=== PATIENT | male | born 1990 | race Two or more races ===

== ENCOUNTER 2017-03-20 02:49 | Inpatient (IN) | payer SELFPAY ==
[~2017-03-20] VITALS: Ht 175.3 cm; Wt 74.0 kg
[2017-03-20 05:15] VITALS: BP 120/77; PULSE 64; RESP 18; TEMP 98; O2SAT 98
[2017-03-20] MEDS ORDERED: ACETAMINOPHEN 325 MG TAB PO PRN (05:45)
[2017-03-20] MEDS ORDERED: ALUMINUM/MAGNESIUM/SIMETH 30 ML CUP PO PRN (05:45)
[2017-03-20] MEDS ORDERED: hydrOXYzine HCL 50 MG TAB PO PRN (05:45)
[2017-03-20] MEDS ORDERED: MAGNESIUM HYDROXIDE SUSP 30 ML CUP PO PRN (05:45)
[2017-03-20] MEDS: NICOTINE 21 MG/24 HR PATCH T-DERMAL SCH ×2 (08:31→14:06)
[2017-03-20] MEDS: REMOVE OLD NICOTINE PATCH T-DERMAL SCH (08:32)
[2017-03-20] MEDS ORDERED: FLUoxetine HCL 10 MG CAP PO ONE (12:45)
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
--- NOTE | 2017-03-20 17:05 | PD.CONS ---
HPI Service [facility] Hospitalists Consult Requested By Dr. Bhakta Reason for Consult Abdominal pain Primary Care Physician Unknown Diagnoses: History of Present Illness This is a 26-year-old male history of known substance abuse who presented with suicidal ideation so was Macdonald acted admitted to inpatient psychiatry. [facility] consulted due to question abdominal pain. When I interviewed patient he stated that he has right and left upper abdominal pain that had occurred for 7 months. He stated pain is constant. Denying nausea or vomiting. Deny any diarrhea or constipation. He stated the pain is dull and constant. He stated that working out makes the pain worse. Patient stated he does power lifting. He denies any fever. Deny any trauma to his chest or abdomen. Patient stated that he is concerned about his gallbladder so wants his gallbladder to be checked. All other review systems reviewed and negative. Past Family Social History Allergies: Coded Allergies: No Known Allergies (Unverified , 03/20/17) Past Medical History Polysubstance abuse ADHD History of incarceration History of suicidal ideations Past Surgical History Denies any past surgical history Reported Medications Deny any home medication. Active Ordered Medications Current Medications Hydroxyzine HCl (Atarax) 50 mg Q6H PRN PO ANXIETY; Start 03/20/17 at 05:45 Acetaminophen (Tylenol) 650 mg Q4H PRN PO Pain 1-5 or Temp >101F; Start at 05:45 Magnesium Hydroxide (Milk Of Magnesia Liq) 30 ml DAILY PRN PO CONSTIPATION; Start 03/20/17 at 05:45 Al Hydrox/Mg Hydrox/Simethicone (Mag-Al Plus Susp Liq) 30 ml Q6H PRN PO DYSPEPSIA; Start 03/20/17 at 05:45 Nicotine (Habitrol 21 Mg Patch.24 Hr) 1 patch DAILY T-DERMAL Last administered on 03/20/17at 14:06; Start 03/20/17 at 09:00 Miscellaneous Information 1 HS T-DERMAL ; Start 03/20/17 at 21:00 Olanzapine (ZyPREXA) 5 mg HS PO ; Start 03/20/17 at 21:00 Fluoxetine HCl (PROzac) 10 mg ONCE ONCE PO Last administered on 03/20/17at 14:05 ; Start 03/20/17 at 12:45; Stop 03/20/17 at 13:17; Status DC Fluoxetine HCl (PROzac) 20 mg DAILY PO ; Start 03/21/17 at 09:00 Gabapentin (Neurontin) 200 mg TID PO ; Start 03/20/17 at 18:00 Family History Mother has history of diabetes. Father had a history of bone marrow cancer. Social History Patient stated he drinks about 1 gallon of vodka a day. He denies any withdrawal symptoms. He stated that he stops drinking he gets a headache but does not get any other symptoms. Patient stated that he took every type of drug you can think of. He stated he never did IV drug use. Physical Exam Vital Signs Vital Signs Date Time Temp Pulse Resp B/P (MAP) Pulse Ox O2 Delivery O2 Flow Rate FiO2 03/20/17 05:15 98.0 64 18 120/77 (91) 98 Physical Exam GENERAL: This is a well-nourished, well-developed patient, in no apparent distress. SKIN: Multiple tattoos HEAD: Atraumatic. Normocephalic. No temporal or scalp tenderness. EYES: Pupils equal round and reactive. Extraocular motions intact. No scleral icterus. No injection or drainage. ENT: Nose without bleeding, purulent drainage or septal hematoma. Throat without erythema, tonsillar hypertrophy or exudate. Uvula midline. Airway patent. NECK: Trachea midline. No JVD or lymphadenopathy. Supple, nontender, no meningeal signs. Tenderness to palpation bilateral lower anterior lower ribs. CARDIOVASCULAR: Regular rate and rhythm without murmurs, gallops, or rubs. RESPIRATORY: Clear to auscultation. Breath sounds equal bilaterally. No wheezes , rales, or rhonchi. GASTROINTESTINAL: Abdomen soft, non-tender, nondistended. No hepato-splenomegaly , or palpable masses. No guarding. MUSCULOSKELETAL: Extremities without clubbing, cyanosis, or edema. No joint tenderness, effusion, or edema noted. No calf tenderness. Negative Homans sign bilaterally. NEUROLOGICAL: Awake and alert. Cranial nerves II through XII intact. Motor and sensory grossly within normal limits. Five out of 5 muscle strength in all muscle groups. Normal speech. Assessment and Plan Assessment and Plan 26-year-old male polysubstance abuse, history incarceration, ADHD who was Macdonald acted to suicidal ideation. [facility] consulted for questionable chronic abdominal pain Bilateral lower rib pain -This has been chronic and constant. Patient stated he does lifting. Most likely secondary to his workout regimen. Recommend backing off his workout regimen. Continue ibuprofen when necessary. -Patient concern that this might be his gallbladder even after reassuring patient that this is not his gallbladder. Patient asking for further workup. Will get ultrasound and labs. DVT prophylaxis -Encouraging ablation. Discussed case with patient's nurse. Leonarda Horan MD Mar 20, 2017 17:05
[2017-03-20] MEDS: GABAPENTIN 100 MG CAP PO SCH (18:08)
[2017-03-20 18:24] VITALS: BP 121/60; PULSE 76; RESP 17; TEMP 98.2; O2SAT 98
[2017-03-20] MEDS: OLANZapine 5 MG TAB PO SCH (21:28)
[2017-03-21 06:42] VITALS: BP 152/66; PULSE 74; RESP 16; TEMP 97.8; O2SAT 98
[2017-03-21] MEDS: NICOTINE 21 MG/24 HR PATCH T-DERMAL SCH (09:00)
[2017-03-21] MEDS: GABAPENTIN 100 MG CAP PO SCH ×3 (09:00→18:00)
[2017-03-21] MEDS ORDERED: FLUoxetine HCL 20 MG CAP PO SCH (09:00)
[2017-03-21 10:47] LABS: ALBUMIN 4.1 GM/DL (3.4-5.0); AST (GOT) 21 U/L (15-37); BICARBONATE 27.9 MEQ/L (21.0-32.0); BLOOD UREA NITROGEN 16 MG/DL (7-18); CALCIUM 9.1 MG/DL (8.5-10.1); CHLORIDE 103 MEQ/L (98-107); CREATININE 1.06 MG/DL (0.60-1.30); GLOMERULAR FILTRATION RATE 85 ML/MIN (>89); GLUCOSE,RANDOM 75 MG/DL (74-106); SODIUM (NA) 138 MEQ/L (136-145)
[2017-03-21 10:49] LABS: CHOLESTEROL 165 MG/DL (120-200); LIPASE 105 U/L (73-393)
[2017-03-21 10:54] LABS: ALKALINE PHOSPHATASE 81 U/L (45-117); ALT (GPT) 20 U/L (12-78); CHOLESTEROL/ HDL RATIO 2.55 RATIO; DIRECT BILIRUBIN ADULT 0.2 MG/DL (0.0-0.2); HDL CHOLESTEROL 64.5 MG/DL (40.0-60.0); INDIRECT BILIRUBIN 0.5 MG/DL (0.0-0.8); LDL CHOLESTEROL 79 MG/DL (0-99); TOTAL BILIRUBIN ADULT 0.7 MG/DL (0.2-1.0); TOTAL PROTEIN 7.5 GM/DL (6.4-8.2); TRIGLYCERIDES 109 MG/DL (42-150)
--- NOTE | 2017-03-21 15:57 | RADRPT ---
EXAM DATE/TIME: 03/21/2017 14:53 [facility] COMPARISON: No previous studies available for comparison. INDICATIONS : Right upper quadrant pain. MEDICAL HISTORY : Migraines. Bipolar disorder. ADHD. PTSD. Anxiety. SURGICAL HISTORY : None. ENCOUNTER: Initial ACUITY: 7-11 months PAIN SCORE: 0/10 LOCATION: Right upper quadrant MEASUREMENTS: LIVER: 16.4 cm length COMMON DUCT: 4 mm RIGHT KIDNEY: 10.7 x 3.7 x 4.7 cm FINDINGS: LIVER: Normal echotexture without focal lesion or ductal dilatation. COMMON DUCT: No intraluminal mass or stone visualized. GALLBLADDER: Contains no stones, demonstrates no wall thickening or pericholecystic fluid. PANCREAS: The visualized portions are within normal limits. RIGHT KIDNEY: No evidence of hydronephrosis, stone, or mass. CONCLUSION: Negative ultrasound of the upper abdomen. I do not see source for right upper quadra nt pain. Meet Huizar MD FACR on March 21, 2017 at 15:54 Board Certified Radiologist. This report was verified electronically.
--- NOTE | 2017-03-21 16:14 | HHI.PYPN ---
Subjective Remarks Patient seen for follow-up, chart reviewed. Discussion she staff reported the patient had refused by this morning stated that he had nausea and vomiting when taken the antidepressant morning. Patient currently on nothing by mouth as he had ultrasound scheduled for today. Patient slept well. Patient was found sitting in hospital bed, cooperative. Patient states that he did not want to continue taking medications as he had felt J upset as well as some nausea and vomiting yesterday after taking it. Side effects was reviewed with patient which she acknowledge but was willing to try different agent to help his depression as well as continue with Zyprexa 5 mg by mouth at bedtime. Patient waiting for ultrasound today states that his mood is "angry for no reason" denies feeling depressed or having suicidal ideations denies any perceptual disturbances at this time. Patient reports continuing to be looking for sober living facilities. Review of Systems Except as stated in HPI: all other systems reviewed are Neg Mental Status Examination Appearance: Appropriate, Other (multiple tattoos) Consciousness: Alert Orientation: Person, Place, Date/Time Motor Activity: Normal gait Speech: Unremarkable Language: Adequate Fund of Knowledge: Inadequate Attention and Concentration: Adequate Memory: Unremarkable Mood: Irritable Affect: Irritable Thought Process & Associations: Intact, Goal directed, Linear Thought Content: Appropriate Hallucination Type: None Delusion Type: None Suicidal Ideation: No Suicidal Plan: No Suicidal Intention: No Homicidal Ideation: No Homicidal Plan: No Homicidal Intention: No Insight: Fair Judgment: Impulsive Results Labs Labs reviewed Test 03/21/17 08:57 Blood Urea Nitrogen 16 MG/DL Creatinine 1.06 MG/DL Random Glucose 75 MG/DL Total Protein 7.5 GM/DL Albumin 4.1 GM/DL Calcium Level 9.1 MG/DL Alkaline Phosphatase 81 U/L Aspartate Amino Transf (AST/SGOT) 21 U/L Alanine Aminotransferase (ALT/SGPT) 20 U/L Total Bilirubin 0.7 MG/DL Direct Bilirubin 0.2 MG/DL Sodium Level 138 MEQ/L Potassium Level 4.0 MEQ/L Chloride Level 103 MEQ/L Carbon Dioxide Level 27.9 MEQ/L Anion Gap 7 MEQ/L Estimat Glomerular Filtration Rate 85 ML/MIN Indirect Bilirubin 0.5 MG/DL Triglycerides Level 109 MG/DL Cholesterol Level 165 MG/DL LDL Cholesterol 79 MG/DL HDL Cholesterol 64.5 MG/DL Cholesterol/HDL Ratio 2.55 RATIO Lipase 105 U/L Vitals/IOs Vital Signs Date Time Temp Pulse Resp B/P (MAP) Pulse Ox O2 Delivery O2 Flow Rate FiO2 03/21/17 06:42 97.8 74 16 152/66 (94) 98 Intake and Output 03/21/17 03/21/17 03/22/17 08:00 16:00 00:00 Intake Total 240 ml Balance 240 ml Assessment & Plan Problem List: (1) Adjustment disorder with depressed mood ICD Codes: F43.21 - Adjustment disorder with depressed mood (2) Polysubstance abuse ICD Codes: F19.10 - Other psychoactive substance abuse, uncomplicated Assessment & Plan The patient at this time reports having had tolerance to side effects from antidepressant continues report irritable mood but denies any suicide ideation nor any perceptual disturbances. We'll discontinue fluoxetine, start mirtazapine 50 mg by mouth at bedtime for depression, continue olanzapine 5 mg by mouth at bedtime. Supportive psychotherapy provided. Patient will have ultrasound done today, medical team to continue follow-up. Discharge planning in progress Justification for Cont. Inpt. At risk for further decompensation at lower level of care Discharge Planning To be discharged to sober living facility once psychiatrically stable. James Bhakta MD Mar 21, 2017 16:14
[2017-03-21 17:13] LABS: HEMOGLOBIN A1C 4.5 % (4.3-6.0)
[2017-03-21 18:37] VITALS: BP 128/59; PULSE 76; RESP 16; TEMP 97.4; O2SAT 100
[2017-03-21] MEDS: REMOVE OLD NICOTINE PATCH T-DERMAL SCH (21:00)
[2017-03-21] MEDS: OLANZapine 5 MG TAB PO SCH (21:31)
[2017-03-21] MEDS: MIRTAZAPINE 15 MG TAB PO SCH (21:31)
[2017-03-22 05:49] VITALS: BP 100/64; PULSE 65; RESP 16; TEMP 97.6; O2SAT 97
[2017-03-22] MEDS: GABAPENTIN 100 MG CAP PO SCH ×3 (09:22→18:26)
[2017-03-22] MEDS: NICOTINE 21 MG/24 HR PATCH T-DERMAL SCH ×2 (09:22→15:51)
--- NOTE | 2017-03-22 13:15 | HHI.PYPN ---
Subjective Remarks Patient was seen and case discussed with nursing. Patient is guarded and hypoverbal. Does not describe any new stressors. Describes his mood today is "angry." No behavioral outbursts. Eating and sleeping well. Denies suicidal homicidal ideation intent or plan Mental Status Examination Appearance: Appropriate, Other (multiple tattoos) Consciousness: Alert Orientation: Person, Place, Date/Time Motor Activity: Normal gait Speech: Unremarkable Language: Adequate Fund of Knowledge: Inadequate Attention and Concentration: Adequate Memory: Unremarkable Mood: Angry Affect: Irritable Thought Process & Associations: Intact, Goal directed, Linear Thought Content: Appropriate Hallucination Type: None Delusion Type: None Suicidal Ideation: No Suicidal Plan: No Suicidal Intention: No Homicidal Ideation: No Homicidal Plan: No Homicidal Intention: No Insight: Fair Judgment: Impulsive Results Vitals/IOs Vital Signs Date Time Temp Pulse Resp B/P (MAP) Pulse Ox O2 Delivery O2 Flow Rate FiO2 03/22/17 05:49 97.6 65 16 100/64 (57) 97 Assessment & Plan Problem List: (1) Adjustment disorder with depressed mood ICD Codes: F43.21 - Adjustment disorder with depressed mood (2) Polysubstance abuse ICD Codes: F19.10 - Other psychoactive substance abuse, uncomplicated Assessment & Plan Continue current treatment plan Justification for Cont. Inpt. Patient would decompensate in a less restrictive setting Jamison Parson DO Mar 22, 2017 13:15
[2017-03-22 16:27] VITALS: BP 129/60; PULSE 78; RESP 17; TEMP 98.2; O2SAT 98
[2017-03-22] MEDS: REMOVE OLD NICOTINE PATCH T-DERMAL SCH (21:00)
[2017-03-22] MEDS: MIRTAZAPINE 15 MG TAB PO SCH (21:44)
[2017-03-22] MEDS: OLANZapine 5 MG TAB PO SCH (21:44)
[2017-03-23] MEDS: NICOTINE 21 MG/24 HR PATCH T-DERMAL SCH (09:00)
[2017-03-23] MEDS: GABAPENTIN 100 MG CAP PO SCH ×3 (09:00→18:43)
--- NOTE | 2017-03-23 12:40 | HHI.PYPN ---
Subjective Remarks Patient was seen and case discussed with nursing. Per nursing patient has been irritable and minimally engaged. He says he feels angry inside but for my interview is quite pleasant. He wants to move on with his life and be discharged. He denies depressed mood. Denies suicidal or homicidal ideation intent or plan. Compliant with medications Mental Status Examination Appearance: Appropriate, Other (multiple tattoos) Consciousness: Alert Orientation: Person, Place, Date/Time Motor Activity: Normal gait Speech: Unremarkable Language: Adequate Fund of Knowledge: Inadequate Attention and Concentration: Adequate Memory: Unremarkable Mood: Angry Affect: Irritable Thought Process & Associations: Intact, Goal directed, Linear Thought Content: Appropriate Hallucination Type: None Delusion Type: None Suicidal Ideation: No Suicidal Plan: No Suicidal Intention: No Homicidal Ideation: No Homicidal Plan: No Homicidal Intention: No Insight: Fair Judgment: Impulsive Results Vitals/IOs Vital Signs Date Time Temp Pulse Resp B/P (MAP) Pulse Ox O2 Delivery O2 Flow Rate FiO2 03/22/17 16:27 98.2 78 17 129/60 (83) 98 Assessment & Plan Problem List: (1) Adjustment disorder with depressed mood ICD Codes: F43.21 - Adjustment disorder with depressed mood (2) Polysubstance abuse ICD Codes: F19.10 - Other psychoactive substance abuse, uncomplicated Assessment & Plan Continue current treatment plan Justification for Cont. Inpt. Patient will decompensate in a less restrictive setting Jamison Parson DO Mar 23, 2017 12:40
[2017-03-23] MEDS ORDERED: IBUPROFEN 400 MG TAB PO PRN (15:00)
--- NOTE | 2017-03-23 15:13 | HHI.PR ---
Subjective Remarks f/u for B/L rib pain patient improved but pain is constant. denied any N/V. remains afebrile. Objective Vitals Vital Signs Date Time Temp Pulse Resp B/P (MAP) Pulse Ox O2 Delivery O2 Flow Rate FiO2 03/22/17 16:27 98.2 78 17 129/60 (83 98 Result Diagram: 03/21/17 0857 Objective Remarks GENERAL: in NAD CARDIOVASCULAR: Regular rate and rhythm without murmurs, gallops, or rubs. RESPIRATORY: Breath sounds equal bilaterally. No accessory muscle use. GASTROINTESTINAL: Abdomen soft, non-tender, nondistended. MUSCULOSKELETAL: + lower rib pain with palpation mild. BACK: Nontender without obvious deformity. No CVA tenderness. Medications and IVs Current Medications Hydroxyzine HCl (Atarax) 50 mg Q6H PRN PO ANXIETY; Start 03/20/17 at 05:45 Acetaminophen (Tylenol) 650 mg Q4H PRN PO Pain 1-5 or Temp >101F Last administered on 03/20/17at 21:30; Start 03/20/17 at 05:45 Magnesium Hydroxide (Milk Of Magnesia Liq) 30 ml DAILY PRN PO CONSTIPATION; Start 03/20/17 at 05:45 Al Hydrox/Mg Hydrox/Simethicone (Mag-Al Plus Susp Liq) 30 ml Q6H PRN PO DYSPEPSIA Last administered on 03/20/17at 20:06; Start 03/20/17 at 05:45 Nicotine (Habitrol 21 Mg Patch.24 Hr) 1 patch DAILY T-DERMAL Last administered on 03/22/17at 15:51; Start 03/20/17 at 09:00 Miscellaneous Information 1 HS T-DERMAL Last administered on 03/22/17at 21:00; Start 03/20/17 at 21:00 Olanzapine (ZyPREXA) 5 mg HS PO Last administered on 03/22/17at 21:44; Start 03/20 at 21:00 Fluoxetine HCl (PROzac) 10 mg ONCE ONCE PO Last administered on 03/20/17at 14:05 ; Start 03/20/17 at 12:45; Stop 03/20/17 at 13:17; Status DC Fluoxetine HCl (PROzac) 20 mg DAILY PO ; Start 03/21/17 at 09:00; Stop 03/21/17 at 15:15; Status DC Gabapentin (Neurontin) 200 mg TID PO Last administered on 03/23/17at 13:00; Start 03/20/17 at 18:00 Mirtazapine (Remeron) 15 mg HS PO Last administered on 03/22/17at 21:44; Start at 21:00 A/P Assessment and Plan 26-year-old male polysubstance abuse, history incarceration, ADHD who was Macdonald acted to suicidal ideation. [facility] consulted for questionable chronic abdominal pain Bilateral lower rib pain -This has been chronic and constant. Patient stated he does lifting. Most likely secondary to his workout regimen. Recommend backing off his workout regimen. Continue ibuprofen when necessary. -us gallbladder normal. labs reviewed WNL. DVT prophylaxis -Encouraging ablation. Discharge Planning patient medically stable. will sign off f/u PRN. Leonarda Horan MD Mar 23, 2017 15:13
[2017-03-23 16:11] VITALS: BP 130/60; PULSE 72; RESP 18; TEMP 98.2; O2SAT 100
[2017-03-23] MEDS: REMOVE OLD NICOTINE PATCH T-DERMAL SCH (21:00)
[2017-03-23] MEDS: OLANZapine 5 MG TAB PO SCH (21:39)
[2017-03-23] MEDS: MIRTAZAPINE 15 MG TAB PO SCH (21:39)
[2017-03-24 06:14] VITALS: BP 107/58; PULSE 65; RESP 18; TEMP 98; O2SAT 100
[2017-03-24] MEDS: GABAPENTIN 100 MG CAP PO SCH ×2 (09:00→12:17)
[2017-03-24] MEDS: NICOTINE 21 MG/24 HR PATCH T-DERMAL SCH (09:00)
[2017-03-24] MEDS ORDERED: GABA300C5 PO (13:43)
[2017-03-24] MEDS ORDERED: MIRTA15 PO (13:43)
[2017-03-24] MEDS ORDERED: OLAN5TAB PO (13:43)
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
--- NOTE | 2017-03-24 15:10 | PD.TTN ---
Patient Problems 1. Discharge planning 2. Medication compliance 3. Knowledge deficit 4. Lack of coping skills Progress Toward Goals Provider Present: Dr. Roshan Bhakta Provider Input: Patient present on the unit and will be leaving today with appropriate discharge follow up. Psychiatric Counselors Present: [facility] Psych Therapist Input: Patient will be discharge and will be residing with his grandparents upon discharge. Patient has good follow up care and is stating that he wants to connect with his faith. Group Spec/RT/OT/RESTREPO Present: Ramy Wadsworth OT Group Spec/RT/OT/RESTREPO Input: Patient is selective in groups. Alma Rosa Villegas Mar 24, 2017 15:10
== END 2017-03-24 15:15 | disposition home or self-care (01) | DRG 881 ==
LOC: H260 05:26
PROVIDERS: ADMIT Student in an Organized Health Care Education/Training Program; ATTEND Student in an Organized Health Care Education/Training Program
DX: F43.21 Adjustment disorder with depressed mood (principal); F20.9 Schizophrenia, unspecified; R45.851 Suicidal ideations; F31.9 Bipolar disorder, unspecified; F60.2 Antisocial personality disorder; F90.9 Attention-deficit hyperactivity disorder, unspecified type; F42.9 Obsessive-compulsive disorder, unspecified; F40.10 Social phobia, unspecified; F12.90 Cannabis use, unspecified, uncomplicated; F10.10 Alcohol abuse, uncomplicated; R07.81 Pleurodynia; F17.210 Nicotine dependence, cigarettes, uncomplicated; Z59.0 Homelessness; Z63.8 Other specified problems related to primary support group; Z81.8 Family history of other mental and behavioral disorders; Z91.410 Personal history of adult physical and sexual abuse; Z91.5 Personal history of self-harm
CPT/HCPCS: 76705; 80048; 80061; 80076; 83036; 83690

== ENCOUNTER 2017-08-13 00:22 | Inpatient (IN) | payer SELFPAY ==
[~2017-08-13 00:22] MED LIST: GABA300C5 PO; MIRTA15 PO; OLAN5TAB PO
[2017-08-13 05:32] VITALS: BP 108/55; PULSE 70; RESP 16; O2SAT 100
[2017-08-13 10:30] VITALS: BP 117/63; PULSE 86; RESP 18; TEMP 97.9; O2SAT 99
--- NOTE | 2017-08-13 10:42 | PD.PSY.CON ---
Provisional Diagnosis Admission Date Date of consultation 08/13/2017 Donora I. 1. Adjustment disorder with mixed disturbance of emotions and conduct 2. Cannabis abuse Donora II. Deferred History of Present Illness Service Psychiatry Consult Requested By Emergency department Reason for Consult Renae pritchett Primary Care Physician No Primary Care Physician HPI Mr. Sorto is a 27-year-old male with a chart history of adjustment disorder and polysubstance abuse who presented initially to [facility] ED reporting aborted suicide attempt by overdose. He was Macdonald acted by the ED provider and sent to the [facility] for further evaluation. Reviewing the electronic medical record, I note that the patient was psychiatrically admitted under Dr. Bhakta in March of this year. Patient seen and examined. Chart reviewed. Case discussed with nursing staff. On my examination today, the patient endorses ongoing suicidal ideation with no specific plan at this point. Complaints of depression, social withdrawal and poor appetite. He complains of paranoia and says that he recently lost his job because "I freaked out. I thought employees on the site were trying to murder me." He reports vague audiovisual hallucinations. No hypomanic or manic symptoms. The remainder of the psychiatric ROS is negative. No acute physical complaints. Past psychiatric history: Patient reports that he saw a psychiatrist last week although he cannot remember the name. He reports that he has had multiple psychiatric admissions since he was here in March most recently in [place] a month ago. He tells me "I keep signing myself out." He reports previous suicide attempts by several different methods, most recently by hanging. Family history: The patient reports that his father has bipolar disorder, his mother has anxiety disorder and his sister and cousin have depression. Chemical dependency history: The patient reports use of cannabis. He reports that historically he has used "tons and tons" of K2. No other substance use reported. Social history: The patient lives alone. He has a girlfriend. He has a 4-year- old son with whom he has no contact. He has his GED and recently lost his job. He served in the [employer] but had a dishonorable discharge. Denies any access to guns or firearms. Denies any active legal issues. Review of Systems Except as stated in HPI: all other systems reviewed are Neg Past Family Social History Coded Allergies: No Known Allergies (Unverified , 03/20/17) Past Medical History See electronic medical record Active Scripts Olanzapine (Olanzapine) 5 Mg Tab, 5 MG PO HS for health for 30 Days, #30 TAB Prov:James Bhakta MD 03/24/17 Mirtazapine (Mirtazapine) 15 Mg Tab, 15 MG PO HS for health for 30 Days, #30 TAB Prov:James Bhakta MD 03/24/17 Gabapentin (Gabapentin) 300 Mg Cap, 300 MG PO TID for health, #90 CAP 0 Refills Prov:James Bhakta MD 03/24/17 Patient's Strengths (min. 2) In a monitored setting. Verbally fluent. Physical Exam Physical exam completed by ED provider. On my examination today, the patient appears to be in no acute physical distress. No motor abnormalities noted. No signs of intoxication or withdrawal noted. Labs and vitals reviewed: Vital Signs Vital Signs Date Time Temp Pulse Resp B/P (MAP) Pulse Ox O2 Delivery O2 Flow Rate FiO2 08/13/17 10:30 97.9 86 18 117/63 (81) 99 Room Air Lab Results Item Value Date Time White Blood Count 7.8 TH/MM3 08/12/172114 Hemoglobin 15.4 GM/DL 08/12/172114 Platelet Count 262 TH/MM3 08/12/172114 Sodium Level 143 MEQ/L 08/12/172114 Potassium Level 4.2 MEQ/L 08/12/172114 Carbon Dioxide Level 30.0 MEQ/L 08/12/172114 Chloride Level 106 MEQ/L 08/12/172114 Blood Urea Nitrogen 14 MG/DL 08/12/172114 Creatinine 1.50 MG/DL H 08/12/172114 Aspartate Amino Transf (AST/SGOT) 12 U/L L 08/12/172114 Alanine Aminotransferase (ALT/SGPT) 19 U/L 08/12/172114 Alkaline Phosphatase 86 U/L 08/12/172114 Urine Cannabinoids Screen POS H 08/12/170 Ethyl Alcohol Level LESS THAN 3 MG/DL 08/12/172114 Mental Status Examination Appearance: Appropriate, Other (Numerous teardrop tattoos at eyelid) Consciousness: Alert Orientation: x4 Motor Activity: Other (No motor abnormalities) Speech: Unremarkable Language: Adequate Fund of Knowledge: Adequate Attention and Concentration: Adequate Memory: Unremarkable (Grossly intact on clinical exam) Mood: Other (Dysphoric) Affect: Other (Restricted) Thought Process & Associations: Intact, Logical, Linear Thought Content: Hallucinations, Delusional Hallucination Type: Auditory, Visual, Other (Reports vague hallucinations. Does not appear internally stimulated.) Delusion Type: Paranoid (Reports subjective paranoia) Suicidal Ideation: Yes Suicidal Plan: No Suicidal Intention: No Homicidal Ideation: No Homicidal Plan: No Homicidal Intention: No Insight: Fair Judgment: Impulsive Assessment & Plan Problem List: (1) Adjustment disorder with mixed disturbance of emotions and conduct ICD Codes: F43.25 - Adjustment disorder with mixed disturbance of emotions and conduct (2) Cannabis abuse ICD Codes: F12.10 - Cannabis abuse, uncomplicated Assessment & Plan 27-year-old male with psychiatric history as detailed above who is presently in the ED under a Macdonald act following reported aborted suicide attempt. Patient endorses ongoing suicidal ideation along with depressive symptoms and subjective paranoia and hallucinations. Possibly some degree of symptom exaggeration, although it is unclear what the secondary gain would be. [facility] be [facility] the [facility] wait list for inpatient psychiatric services there. Macdonald act remains in place. Patient to remain in [facility] pending transferred to [facility]. Case discussed with RN. Thank you very much for this consultation. Tony Elkins MD August 13, 2017 10:42
[2017-08-13 18:02] VITALS: BP 131/78; PULSE 61; RESP 16; TEMP 97.8; O2SAT 99
[2017-08-13 22:32] VITALS: BP 116/62; PULSE 84; RESP 16; TEMP 98.6; O2SAT 98
[2017-08-14 02:50] VITALS: BP 114/62; PULSE 70; RESP 16; TEMP 97.2; O2SAT 99
[2017-08-14 06:27] VITALS: BP 128/70; PULSE 80; RESP 16; TEMP 98.2; O2SAT 98
--- NOTE | 2017-08-14 07:46 | HHI.HP ---
Provisional Diagnosis Admission Date 08/14/2017 [place]. 1. Adjustment disorder with mixed disturbance of emotions and conduct 2. Cannabis abuse [place] II. Deferred Certification of Person's Competence To Provide Express and Informed Consent I have personally examined Jb Sorto , a person being served at [facility] on, August 14, 2017 07:46. Express and informed consent means consent voluntarily given in writing, by a competent person, after sufficient explanation and disclosure of the subject matter involved to enable the person to make a knowing and willful decision without any element of force, fraud, deceit, duress, or other form of constraint or coercion. This person is 18 years of age or older, is not now known to be incompetent to consent to treatment with a guardian advocate, and does not have a health care surrogate or proxy currently making medical treatment decisions. I have found this person to be one of the following: [x] Competent to provide express and informed consent, as defined above, for voluntary admission to this facility and is competent to provide express and informed consent for treatment. He/she has the consistent capacity to make well reasoned, willful, and knowing decisions concerning his or her medical or mental health treatment. The person fully and consistently understands the purpose of the admission for examination/placement and is fully capable of personally exercising all rights assured [place] Incompetent to provide express and informed consent to voluntary admission, and this is incompetent to provide express and informed consent to treatment. The person must be transferred to involuntary status and a petition for a guardian advocate filed with the Circuit Court. [] Refusing to provide express and informed consent to voluntary admission but is competent to provide express and informed consent for treatment. The person must be discharged or transferred to involuntary status. Form shall be completed within 24 hours of a person's arrival at the receiving facility and filed in the clinical record of each person: 1. Admitted on a voluntary basis 2. Permitted to provide express and informed consent to his/her own treatment 3. Allowed to transfer from involuntary to voluntary status 4. Prior to permitting a person to consent to his or her own treatment after having been previously found incompetent to consent to treatment. History of Present Illness Capacity: Has Capacity Psych Chief Complaint: Depression, paranoia HPI From my consult note of yesterday: Mr. Sorto is a 27-year-old male with a chart history of adjustment disorder and polysubstance abuse who presented initially to [facility] reporting aborted suicide attempt by overdose. He was Macdonald acted by the ED provider and sent to the main campus for further evaluation. Reviewing the electronic medical record, I note that the patient was psychiatrically admitted under Dr. Bhakta in March of this year. Patient seen and examined. Chart reviewed. Case discussed with nursing staff. On my examination today, the patient endorses ongoing suicidal ideation with no specific plan at this point. Complaints of depression, social withdrawal and poor appetite. He complains of paranoia and says that he recently lost his job because "I freaked out. I thought employees on the site were trying to murder me." He reports vague audiovisual hallucinations. No hypomanic or manic symptoms. The remainder of the psychiatric ROS is negative. No acute physical complaints. Past psychiatric history: Patient reports that he saw a psychiatrist last week although he cannot remember the name. He reports that he has had multiple psychiatric admissions since he was here in March most recently in [place] a month ago. He tells me "I keep signing myself out." He reports previous suicide attempts by several different methods, most recently by hanging. Family history: The patient reports that his father has bipolar disorder, his mother has anxiety disorder and his sister and cousin have depression. Chemical dependency history: The patient reports use of cannabis. He reports that historically he has used "tons and tons" of K2. No other substance use reported. Social history: The patient lives alone. He has a girlfriend. He has a 4-year- old son with whom he has no contact. He has his GED and recently lost his job. He served in the [employer] but had a dishonorable discharge. Denies any access to guns or firearms. Denies any active legal issues. On my re-examination today, 08/14: Patient seen and examined. Chart reviewed. Case discussed with nursing staff. No reported behavioral issues noted overnight. Patient has not moved up on the ACT wait list and in fact has moved down a spot. On my examination today, the patient endorses ongoing dysphoria, paranoia and suicidal ideation. He denies any specific plan. Denies any urge to hurt himself on the inpatient unit. Says that he is ruminating on negative thoughts. Denies AVH. We discuss possible medication management options. The patient reports that he has done well with Risperdal in the past but stopped it because he was worried about the possible side effect of gynecomastia. He did not in fact experience this side effect. Extensive psychoeducation provided regarding hyperprolactinemia and gynecomastia. Patient notes that Risperdal is the only thing that has really shown any glimmer of helping, although the Remeron does help him with sleep. He would like to be psychiatrically admitted for management of his ongoing psychiatric symptoms. Review of Systems Except as stated in HPI: all other systems reviewed are Neg Past Family Social History Coded Allergies: No Known Allergies (Unverified , 03/20/17) Past Medical History See EMR Active Scripts Olanzapine (Olanzapine) 5 Mg Tab, 5 MG PO HS for health for 30 Days, #30 TAB Prov:James Bhakta MD 03/24/17 Mirtazapine (Mirtazapine) 15 Mg Tab, 15 MG PO HS for health for 30 Days, #30 TAB Prov:James Bhakta MD 03/24/17 Gabapentin (Gabapentin) 300 Mg Cap, 300 MG PO TID for health, #90 CAP 0 Refills Prov:James Bhakta MD 03/24/17 Patient's Strengths (min. 2) In a monitored setting. Verbally fluent. Physical Exam Physical examination was completed by the ED provider. On my reexamination today, the patient remains in no physical distress. No motor abnormalities noted. Labs and vitals again reviewed. Vital Signs Vital Signs Date Time Temp Pulse Resp B/P (MAP) Pulse Ox O2 Delivery O2 Flow Rate FiO2 08/14/17 06:27 98.2 80 16 128/70 (89) 98 08/13/17 18:02 Room Air Lab Results Besides decreased GFR and toxicology positive for cannabinoids, no clinically significant laboratory abnormalities. Mental Status Examination Appearance: Appropriate, Other (Numerous teardrop tattoos at eyelid) Consciousness: Alert Orientation: x4 Motor Activity: Other (No abnormal motor movements noted.) Speech: Unremarkable Language: Adequate Fund of Knowledge: Adequate Attention and Concentration: Adequate Memory: Unremarkable (Grossly intact on clinical exam) Mood: Other (Remains dysphoric) Affect: Other (Restricted) Thought Process & Associations: Intact, Logical, Linear Thought Content: Delusional Hallucination Type: None (Denies AVH today) Delusion Type: Paranoid (Reports subjective paranoia) Suicidal Ideation: Yes Suicidal Plan: No Suicidal Intention: No (No reported urge to hurt self on inpatient unit) Homicidal Ideation: No Homicidal Plan: No Homicidal Intention: No Insight: Fair Judgment: Impulsive Assessment & Plan Problem List: (1) Adjustment disorder with mixed disturbance of emotions and conduct ICD Codes: F43.25 - Adjustment disorder with mixed disturbance of emotions and conduct (2) Cannabis abuse ICD Codes: F12.10 - Cannabis abuse, uncomplicated Assessment & Plan 27-year-old male presently held in the [place] under a [employer] act. Given lack of movement on ACT wait list, we will admit the patient here. Admit inpatient. Voluntary status. Initiate Risperdal 1 mg twice daily along with Remeron 15 mg at bedtime for management of psychiatric symptoms. Atarax as needed for anxiety, Cogentin as needed for EPS, Benadryl as needed for sleep. Check a baseline prolactin as well as hemoglobin A1c, lipid panel and BMP. Vitals every shift. Counselor to see. Disposition planning. Estimated length of stay: 5-7 days. Discharge Planning Pending psychiatric stabilization Request HC Surrog/Guard Advoc?: No Tony Elkins MD August 14, 2017 07:46
[2017-08-14] MEDS ORDERED: diphenhydrAMINE HCL 50 MG CAP PO PRN (08:00)
[2017-08-14] MEDS ORDERED: hydrOXYzine HCL 50 MG TAB PO PRN (08:00)
[2017-08-14] MEDS ORDERED: NICOTINE 21 MG/24 HR PATCH T-DERMAL PRN (08:00)
[2017-08-14] MEDS ORDERED: ACETAMINOPHEN 325 MG TAB PO PRN (08:00)
[2017-08-14] MEDS ORDERED: ALUMINUM/MAGNESIUM/SIMETH 30 ML CUP PO PRN (08:00)
[2017-08-14] MEDS ORDERED: BENZTROPINE MESYLATE 1 MG TAB PO PRN (08:00)
[2017-08-14] MEDS ORDERED: BENZTROPINE MESYLATE 2 MG/2 ML VIAL IM PRN (08:00)
[2017-08-14] MEDS ORDERED: MAGNESIUM HYDROXIDE SUSP 30 ML CUP PO PRN (08:00)
[2017-08-14 10:53] VITALS: BP 137/70; PULSE 70; RESP 18; TEMP 98.1; O2SAT 100
[2017-08-14] MEDS: risperiDONE 1 MG TAB PO SCH ×2 (11:33→21:03)
[2017-08-14] MEDS: GABAPENTIN 300 MG CAP PO SCH ×3 (11:33→17:31)
[2017-08-14 14:32] LABS: BICARBONATE 28.2 MEQ/L (21.0-32.0); CALCIUM 9.3 MG/DL (8.5-10.1); CREATININE 1.24 MG/DL (0.60-1.30)
[2017-08-14 17:52] VITALS: BP 138/68; PULSE 96; RESP 17; TEMP 97.1; O2SAT 97
[2017-08-14] MEDS ORDERED: MIRTAZAPINE 15 MG TAB PO SCH (21:00)
[2017-08-14] MEDS ORDERED: REMOVE OLD NICODERM (NICOTINE) PATCH T-DERMAL PRN (21:00)
[2017-08-15 05:28] VITALS: BP 118/78; PULSE 69; RESP 18; TEMP 97.7; O2SAT 97
[2017-08-15] MEDS: GABAPENTIN 300 MG CAP PO SCH ×3 (08:35→17:44)
[2017-08-15] MEDS: risperiDONE 1 MG TAB PO SCH (08:35)
[2017-08-15 09:02] LABS: CHOLESTEROL 136 MG/DL (120-200); TRIGLYCERIDES 193 MG/DL (42-150)
[2017-08-15 09:04] LABS: CHOLESTEROL/ HDL RATIO 3.37 RATIO; HDL CHOLESTEROL 40.3 MG/DL (40.0-60.0); LDL CHOLESTEROL 57 MG/DL (0-99)
[2017-08-15] MEDS ORDERED: MIRTA15 PO (14:58)
[2017-08-15] MEDS ORDERED: GABA300C5 PO (14:58)
[2017-08-15] MEDS ORDERED: RISP1 PO (14:58)
--- NOTE | 2017-08-15 14:58 | EKG ---
Date Performed: 08/15/2017 Time Performed: 10:04:38 PTAGE: 27 years EKG: Sinus rhythm NORMAL ECG NO PREVIOUS TRACING DOCTOR: Frank Voss Interpretating Date/Time 08/15/2017 14:53:56
--- NOTE | 2017-08-15 14:59 | HHI.DS ---
Psychiatry Discharge Summary Inpatient Psychiatric care?: Yes Advance Directive: No Reason Not Provided: Provided info to patient Mental Health AdvanceDirective: No Health Care Proxy: No Admission Admission Date August 14, 2017 at 07:46 Admission Diagnosis: (1) Adjustment disorder with mixed disturbance of emotions and conduct ICD Code: F43.25 - Adjustment disorder with mixed disturbance of emotions and conduct (2) Cannabis abuse ICD Code: F12.10 - Cannabis abuse, uncomplicated Brief History From my consult note of yesterday: Mr. Sorto is a 27-year-old male with a chart history of adjustment disorder and polysubstance abuse who presented initially to [facility] ED reporting aborted suicide attempt by overdose. He was Macdonald acted by the ED provider and sent to the main campus for further evaluation. Reviewing the electronic medical record, I note that the patient was psychiatrically admitted under Dr. Bhakta in March of this year. Patient seen and examined. Chart reviewed. Case discussed with nursing staff. On my examination today, the patient endorses ongoing suicidal ideation with no specific plan at this point. Complaints of depression, social withdrawal and poor appetite. He complains of paranoia and says that he recently lost his job because "I freaked out. I thought employees on the site were trying to murder me." He reports vague audiovisual hallucinations. No hypomanic or manic symptoms. The remainder of the psychiatric ROS is negative. No acute physical complaints. Past psychiatric history: Patient reports that he saw a psychiatrist last week although he cannot remember the name. He reports that he has had multiple psychiatric admissions since he was here in March most recently in [place] a month ago. He tells me "I keep signing myself out." He reports previous suicide attempts by several different methods, most recently by hanging. Family history: The patient reports that his father has bipolar disorder, his mother has anxiety disorder and his sister and cousin have depression. Chemical dependency history: The patient reports use of cannabis. He reports that historically he has used "tons and tons" of K2. No other substance use reported. Social history: The patient lives alone. He has a girlfriend. He has a 4-year- old son with whom he has no contact. He has his GED and recently lost his job. He served in the [employer] but had a dishonorable discharge. Denies any access to guns or firearms. Denies any active legal issues. On my re-examination today, 08/14: Patient seen and examined. Chart reviewed. Case discussed with nursing staff. No reported behavioral issues noted overnight. Patient has not moved up on the ACT wait list and in fact has moved down a spot. On my examination today, the patient endorses ongoing dysphoria, paranoia and suicidal ideation. He denies any specific plan. Denies any urge to hurt himself on the inpatient unit. Says that he is ruminating on negative thoughts. Denies AVH. We discuss possible medication management options. The patient reports that he has done well with Risperdal in the past but stopped it because he was worried about the possible side effect of gynecomastia. He did not in fact experience this side effect. Extensive psychoeducation provided regarding hyperprolactinemia and gynecomastia. Patient notes that Risperdal is the only thing that has really shown any glimmer of helping, although the Remeron does help him with sleep. He would like to be psychiatrically admitted for management of his ongoing psychiatric symptoms. Tobacco Use In Past 30 Days: No Tobacco Past 30 Days Alcohol Use: 4 or More Times Per Week Hospital Course Mr. Sorto is a 27-year-old male with a chart history of adjustment disorder and polysubstance abuse who presented initially to [facility] ED reporting aborted suicide attempt by overdose. He was Macdonald acted by the ED provider and sent to the [facility] for further evaluation who was admitted to the inpatient psychiatry for further evaluation and management. Patient started on Risperidone 1mg BID, mirtazapine 15mg PO daily which patient tolerated well with no notable adverse drug reactions. Patient was noted with reported depressive symptoms along with continued SI but with reinitiation of treatment no longer endorsed SI and improvement of depressive symptoms. She did not endorse any manic or psychotic symptoms, and no longer endorsed SI after kept on treatment. Patient was noted to have improvement in mood, and continued to deny SI. Patient was noted with stable mood, was noted to participate in self care, engaging with staff, participated in groups and maintaining adequate hygiene. Treatment team was able to set up outpatient follow up appointments which the patient can continue with current medication regimen. Collateral information from patients family confirmed to assist in support with treatment as well as engagement [facility] a [facility]. Upon discharge patient stated that she was feeling good, reported well with the treatment, as well as motivation to continue recommendations and denied any SI, HI, perceptual disturbances or delusions. Weighing the acute, chronic, and protective factors and based on the available evidence, I county judge to a reasonable degree of medical certainty that the patient is at low imminent risk of harm to self or others from a mental illness as defined under the Macdonald act and his level of function is adequate as observed on the unit for planned level of outpatient care. He was counseled regarding warning signs for need to return to the psychiatric emergency room as part of a general safety plan. Patient advised to call 911 or go nearest ED in case of emergency. Patient agreed with plan. Results Blood Pressure 118 / 78 Vital Signs Date Time Temp Pulse Resp B/P (MAP) Pulse Ox O2 Delivery O2 Flow Rate FiO2 08/15/17 05:28 97.7 69 18 118/78 (91) 97 08/13/17 18:02 Room Air Laboratory Tests Test 08/14/17 14:00 08/15/17 07:46 Estimat Glomerular Filtration Rate 70 ML/MIN (>89) Prolactin 110 ng/mL (4.0 - 15.2) Triglycerides Level 193 MG/DL (42-150) Laboratory Results Test 08/15/17 07:46 Cholesterol Level 136 MG/DL (120-200) HDL Cholesterol 40.3 MG/DL (40.0-60.0) LDL Cholesterol 57 MG/DL (0-99) Triglycerides Level 193 MG/DL (42-150) Summary of Procedures None Pending results at discharge: No Medications # of Antipsychotic meds at D/C: 1 Approp Antipsych med options 1 - Minimum of three failed multiple trials of monotherapy. 2 - Documented plan to taper to monotherapy due to previous use of multiple meds OR cross-taper in progress at D/C. 3 - Documentation of augmentation of Clozapine. 4 - Justification other than those listed in allowable values 1-3, document here : Discharge Discharge Date: Aug 15, 2017 Discharge Diagnosis: (1) Adjustment disorder with mixed disturbance of emotions and conduct ICD Code: F43.25 - Adjustment disorder with mixed disturbance of emotions and conduct (2) Cannabis abuse ICD Code: F12.10 - Cannabis abuse, uncomplicated Pt Condition on Discharge: Stable Discharge Disposition: Discharge Home Discharge Instructions Diet Instructions: As Tolerated, No Restrictions Activities you can perform: Regular-No Restrictions Discharge Time > 30 minutes Mental Status Examination Appearance: Appropriate, Other (Numerous teardrop tattoos at eyelid) Consciousness: Alert Orientation: x4 Motor Activity: Other (No abnormal motor movements noted.) Speech: Unremarkable Language: Adequate Fund of Knowledge: Adequate Attention and Concentration: Adequate Memory: Unremarkable (Grossly intact on clinical exam) Mood: Appropriate Affect: Appropriate Thought Process & Associations: Intact, Logical, Linear Thought Content: Appropriate Hallucination Type: None Delusion Type: None Suicidal Ideation: No Suicidal Plan: No Suicidal Intention: No Homicidal Ideation: No Homicidal Plan: No Homicidal Intention: No Insight: Fair Judgment: Impulsive Discharge/Advance Care Plan Health Problems: (1) Adjustment disorder with mixed disturbance of emotions and conduct (2) Cannabis abuse Goals to promote your health * To prevent worsening of your condition and complications * To maintain your health at the optimal level Directions to meet your goals Take your medications as prescribed Follow your dietary instruction Follow activity as directed Keep your appointments as scheduled Take your immunizations and boosters as scheduled If your symptoms worsen call your PCP, if no PCP go to Urgent Care Center or Emergency Room For 07/10 questions related to your inpatient stay or results of tests pending at discharge, please contact Dr. James Bhakta at Smoking is Dangerous to Your Health. Avoid second hand smoking James Bhakta MD Aug 15, 2017 14:59
[2017-08-15 16:45] LABS: HEMOGLOBIN A1C 4.4 % (4.3-6.0)
[2017-08-15 16:57] VITALS: BP 120/61; PULSE 90; RESP 18; TEMP 97.8; O2SAT 98
== END 2017-08-15 19:15 | disposition home or self-care (01) | DRG 882 ==
LOC: NEPJ 00:22 → NEDA 08-14 07:46 → H260 08-14 10:30
PROVIDERS: ADMIT Student in an Organized Health Care Education/Training Program; ATTEND Student in an Organized Health Care Education/Training Program
DX: F43.25 Adjustment disorder with mixed disturbance of emotions and conduct (principal); R45.851 Suicidal ideations; F22 Delusional disorders; F12.10 Cannabis abuse, uncomplicated; F32.9 Major depressive disorder, single episode, unspecified; Z91.5 Personal history of self-harm; Z81.8 Family history of other mental and behavioral disorders
CPT/HCPCS: 80048; 80061; 83036; 84146; 93005; 99285